=== PATIENT | female | born 1955 | race Caucasian/White ===

== ENCOUNTER 2021-06-05 11:34 | Emergency (ER) | payer MEDICARE, BC ==
[~2021-06-05] VITALS: Ht 167.6 cm; Wt 66.7 kg
--- NOTE | 2021-06-05 11:55 | NUR ---
PT CAME TO ER FOR FOREHEAD LACERATION S/P SLIP AND FALL EARLIER TODAY. DENIES LOSS OF CONSCIOUSNESS OR DIZZINESS. AAOX4, BREATHING EVEN AND UNLABORED, PULSES 2+ BILATERALLY, NO ACTIVE BLEEDING, ASSISTED TO ER BED 3.
[2021-06-05] MEDS ORDERED: LIDOCAINE 1%-EPI 1:100,000 20 ML VIAL ONE (12:02)
[2021-06-05] MEDS ORDERED: TDAP [DIPH/PERTUSSIS/TET] 0.5 ML VIAL IM ONE ×2 (12:07→12:30)
[2021-06-05] MEDS ORDERED: LIDOCAINE 2%-EPI 1:100,000 30 ML VIAL TP ONE (12:30)
--- NOTE | 2021-06-05 12:47 | NUR ---
WOUND CARE DONE TO PT'S FORE HEAD. STITCHES DONE BY ISMAEL PERALTA
[2021-06-05] MEDS ORDERED: CEPH500C2 PO (12:49)
[2021-06-05 13:05] VITALS: BP 112/71
== END 2021-06-05 13:06 | disposition home or self-care (01) ==
LOC: ER 11:39
DX: S01.81XA Laceration without foreign body of other part of head, initial encounter (principal); Z79.899 Other long term (current) drug therapy; W01.0XXA Fall on same level from slipping, tripping and stumbling without subsequent striking against object, initial encounter; Y93.89 Activity, other specified; Y92.89 Other specified places as the place of occurrence of the external cause; Y99.8 Other external cause status
CPT/HCPCS: 12013; 90471; 90715; 99283; A6403; J3490

== ENCOUNTER 2022-05-18 11:52 | Emergency (ER) | payer MEDICARE, BC ==
[~2022-05-18] VITALS: Ht 167.6 cm; Wt 66.7 kg
[~2022-05-18 11:52] MED LIST: CEPH500C2 PO
--- NOTE | 2022-05-18 11:55 | NUR ---
BIB [facility] FROM HOME,TRIPPED ON A HEATER CORD ON THE FLOOR, HITTING HEAD AGAINST COUNTER, NO LOC. PLACED ON BED, AAOX4, BREATHING EVEN AND UNLABORED.
--- NOTE | 2022-05-18 12:15 | NUR ---
AT BEDSIDE FOR EVAL
--- NOTE | 2022-05-18 12:28 | NUR ---
PATIENT TAKEN TO CT VIA [facility]
--- NOTE | 2022-05-18 12:31 | NUR ---
Note shaggy in EDM - 05/18/22 at 1232 by CHETNA BIB [facility] FROM HOME,TRIPPED ON A HEATER CORD ON THE FLOOR, HITTING HEAD AGAINST COUNTER, NO LOC. PLACED ON BED, AAOX4, BREATHING EVEN AND UNLABORED.
--- NOTE | 2022-05-18 14:15 | NUR ---
[facility] [phone]
[2022-05-18] MEDS ORDERED: FLUORESCEIN SODIUM OPHTH 1 EA STRIP ONE (14:24)
[2022-05-18] MEDS ORDERED: FLUORESCEIN SODIUM OPHTH 1 EA STRIP OP ONE (14:30)
[2022-05-18] MEDS ORDERED: LIDOCAINE 1%-EPI 1:100,000 20 ML VIAL TP ONE (14:30)
--- NOTE | 2022-05-18 15:00 | NUR ---
SUTURING OF THE R SIDE FOREHEAD LAC. DONE BY
--- NOTE | 2022-05-18 15:05 | NUR ---
Patient discharged to home in stable condition. Written and verbal after care instructions given. Patient verbalizes understanding of instruction.
[2022-05-18 15:32] VITALS: BP 120/70
== END 2022-05-18 15:05 | disposition home or self-care (01) ==
LOC: ER 12:03
DX: S01.111A Laceration without foreign body of right eyelid and periocular area, initial encounter (principal); S01.81XA Laceration without foreign body of other part of head, initial encounter; W01.190A Fall on same level from slipping, tripping and stumbling with subsequent striking against furniture, initial encounter; Y93.89 Activity, other specified; Y92.009 Unspecified place in unspecified non-institutional (private) residence as the place of occurrence of the external cause; Y99.8 Other external cause status
CPT/HCPCS: 99284; 72125; 12013; 70450; A6403